=== PATIENT | male | born 1975 ===

== ENCOUNTER 2019-05-13 16:51 | Emergency (ER) | payer SELFPAY ==
[2019-05-13] MEDS ORDERED: Clindamycin CAP* 150 MG PO ONE (18:42)
[2019-05-13] MEDS ORDERED: Ketorolac INJ* 30 MG/ML 1 ML VIAL IM ONE (18:42)
--- NOTE | 2019-05-13 18:44 | ED ---
Throat Pain/Nasal Congestion - HPI Summary HPI Summary: 44-year-old male presents with dental pain for the past 2 weeks. He states that he had dental work on this tooth a couple years ago and he feels like he needed it removed. He states he gets a sharp pain in the area. Denies any swelling. states that he feels the area is more swollen. Denies any chest pain or shortness of breath. No fevers. Has been taking Tylenol for pain. - History of Current Complaint Chief Complaint: EDDentalPain Time Seen by Provider: 05/13/19 18:20 - Allergies/Home Medications Allergies/Adverse Reactions: Allergies Allergy/AdvReac Type Severity Reaction Status Date / Time Penicillins Allergy Hives Verified 05/13/19 18:18 PMH/Surg Hx/FS Hx/Imm Hx Endocrine/Hematology History: Denies: Hx Anticoagulant Therapy Respiratory History: Denies: Hx Asthma Infectious Disease History: No Infectious Disease History: Denies: Traveled Outside the [place] in Last 30 Days - Family History Known Family History: Positive: Non-Contributory - Social History Alcohol Use: None Substance Use Type: Reports: None Smoking Status (MU): Never Smoked Tobacco Review of Systems Negative: Fever Positive: Dental Pain Negative: Chest Pain Negative: Shortness Of Breath All Other Systems Reviewed And Are Negative: Yes Physical Exam Triage Information Reviewed: Yes Vital Signs On Initial Exam: Initial Vitals Temp Pulse Resp BP Pulse Ox 97.9 F 62 16 129/98 100 05/13/19 16:53 05/13/19 16:53 05/13/19 16:53 05/13/19 16:53 05/13/19 16:53 Vital Signs Reviewed: Yes Appearance: Positive: Well-Appearing Skin: Positive: Warm, Dry Head/Face: Positive: Normal Head/Face Inspection Eyes: Positive: Normal, Conjunctiva Clear ENT: Positive: Pharynx normal Dental: Positive: Percussion Tenderness @ - 32,31. Negative: Abscess @ Respiratory/Lung Sounds: Positive: Clear to Auscultation, Breath Sounds Present Cardiovascular: Positive: Normal, RRR Musculoskeletal: Positive: Normal Neurological: Positive: Normal Psychiatric: Positive: Normal Procedures - Sedation Patient Received Moderate/Deep Sedation with Procedure: No Diagnostics - Vital Signs Vital Signs Temp Pulse Resp BP Pulse Ox 05/13/19 16:53 97.9 F 62 16 129/98 100 - Laboratory Lab Statement: Any lab studies that have been ordered have been reviewed, and results considered in the medical decision making process. EENT Course/Dx - Course Course Of Treatment: 44-year-old male presents with dental pain for the past 2 weeks. He states that he had dental work on this tooth a couple years ago and he feels like he needed it removed. He states he gets a sharp pain in the area. Denies any swelling. states that he feels the area is more swollen. Denies any chest pain or shortness of breath. No fevers. Has been taking Tylenol for pain. On exam tenderness over tooth 32 and 31. No abscess noted. Will treat with clindamycin and ibuprofen. told follow up with Dentist. Patient understands and agrees with plan. - Differential Diagnoses Differential Diagnoses: Dental Abscess, Dental Caries, Fractured Tooth - Diagnoses Provider Diagnoses: Dental infection Discharge ED - Sign-Out/Discharge Documenting (check all that apply): Patient Departure - Discharge Plan Condition: Good Disposition: HOME Prescriptions: Clindamycin HCl 150 mg PO TID #20 capsule Ibuprofen TAB* [Motrin TAB* 800 MG] 800 mg PO Q6H #20 tab Patient Education Materials: Toothache (ED) Referrals: [facility] [place] [facility] [Outside] Additional Instructions: Take clindamycin three times a day for 7 days Take ibuprofen or tyenlol every 6 hours for pain as needed Avoid hard, crunchy food until seen by dentist Return to ED if develop fever, shortness of breath, pain with eye movement or swelling around eye Establish care with primary care physician and dentist as soon as possible - Billing Disposition and Condition Condition: GOOD Disposition: Home
[2019-05-13 19:02] VITALS: BP 119/96
== END 2019-05-13 19:01 | disposition home or self-care (01) ==
LOC: ED 16:51
DX: K04.7 Periapical abscess without sinus (principal); K08.89 Other specified disorders of teeth and supporting structures
CPT/HCPCS: 96372; 99282; A9270-GY; J1885